=== PATIENT | female | born 1975 | race Hispanic/Latino ===

== ENCOUNTER 2021-10-26 23:05 | Emergency (ER) | payer BC ==
[2021-10-26] MEDS ORDERED: Mag-Al Plus 1200 MG/1200 MG/120 MG/30 ML UDCUP ONE (23:52)
[2021-10-26] MEDS ORDERED: Lidocaine Viscous Sol 2% 15 ml UD Cup ONE (23:53)
== END 2021-10-27 00:28 | disposition home or self-care (01) ==
LOC: CSHERS 23:05
DX: K29.00 Acute gastritis without bleeding (principal); I10 Essential (primary) hypertension; Z79.899 Other long term (current) drug therapy
CPT/HCPCS: 71045; 93005; 93010

== ENCOUNTER 2022-03-31 21:00 | Emergency (ER) | payer BC | END 2022-03-31 21:58 | disposition home or self-care (01) | LOC: CSHERS 21:00 | DX: H60.92 Unspecified otitis externa, left ear (principal); I10 Essential (primary) hypertension | CPT/HCPCS: 99282 ==